=== PATIENT | female | born 2005 | race Caucasian/White ===

== ENCOUNTER 2025-03-11 15:30 | Outpatient (RCR) | payer OTHER, SELFPAY ==
[2025-02-25 15:15] VITALS: BP 101/63; PULSE 62; RESP 18; TEMP 36.9
--- NOTE | 2025-02-25 18:01 | PCM.WC.HP ---
History of Present Illness Date of Service: 02/26/25 Chief Complaint: R chung wound History of Wound: Hanna Duque is a 19 y/o female who presents today for evaluation and management of a right chung wound she sustained secondary to a fall at work (she works in [employer]) about 5 weeks ago in which a piece of metal scraped her chung. She has up to date Tetanus. She was not evaluated in ER/urgent care when this occurred. She has been managing at home by applying antibiotic ointment, silver cream, and keeping covered. She reports initially after the injury the area became red and swollen; her tablet coater prescribed a course of Bactrim which she completed with improvement in the redness and swelling. She is able to walk without issue. 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 She notes when she is up on her feet and more active she gets a lot more drainage from the wound. She has had prior scrapes etc before with slightly slow healing by her estimation. She is not diabetic. She does not have any known autoimmune disorder nor is she on any immune-modulating therapies. She does not smoke. She is otherwise in very good health. [facility] Home Medications ?Medication ?Instructions ?Recorded ?Last Taken ?Type ferrous sulfate 325 mg (65 mg 325 mg PO DAILY 02/25/25 Unknown History iron) tablet (Feosol) sulfamethoxazole 800 1 tab PO BID 02/25/25 02/25/25 History mg-trimethoprim 160 mg tablet Allergy/AdvReac Type Severity Reaction Status Date / Time No Known Allergies Allergy Verified 02/25/25 15:28 Vital Signs Vital Signs Vital Signs: 02/25/25 15:15 Temperature 98.5 F Temperature Source Temporal Pulse Rate 62 Respiratory Rate 18 Blood Pressure 101/63 Blood Pressure Mean 75 Blood Pressure Source Monitor Blood Pressure Position Sitting Blood Pressure Location Left Arm Physical Exam Const alert, oriented x3 and no apparent distress General Appearance: cooperative and comfortable HEENT normocephalic, head/scalp atraumatic, hearing grossly normal bilaterally, external ears normal and external nose normal Eyes EOMs intact bilaterally General Eye: normal appearance of both eyes Neck General: normal visual inspection and trachea midline Resp normal respiratory effort, normal air movement, no retractions and no use of accessory muscles Effort and Inspection: able to speak in complete sentences; Negative for labored, grunting, stridor or audible wheezes Extremity no clubbing, cyanosis or edema Skin Wounds: wounds noted Wound Narrative: R anterior chung wound which is ~0.7cm in depth to the muscle, 1.7 x 1.0 cm. Wound base initially covered with nonviable tissue, slough, dried drainage; once debrided, well-bleeding and ~70% granular base. There is mild erythema about the wound edges without associated focal edema/fluctuance/induration. To probing, no tracking or undermining. Minimal serous drainage. No foul odor. Neuro oriented x3, moves all extremities and no focal motor deficits Speech: speech normal Psych mental status grossly normal Appearance: grossly normal Attitude: calm and engaged Activity / Motor Behavior: appropriate eye contact Speech: normal speech Mood & Affect: euthymic mood Judgement: judgement good Debridement Note Debridement Note Wound debrided: R anterior chung Laterality: Right Type of Debridement: Excisional debridement Anesthesia Used: 5% Lidocaine Gel Depth: Down to and including healthy tissue and to muscle Percentage of wound debrided: 100 Instrument Used: 5mm curette Tissue Removed: slough, nonviable tissue Amount of bleeding with debridement: Mild Bleeding Controlled with: Pressure Patient tolerated procedure: Patient tolerated procedure well Post-Debridement Measurements and Additional Note: Post-Debridement Measurements/Treatment - Nurse 1 - General Ulcer Assessment Start: 02/25/25 15:13 Freq: Status: Active Protocol: CATIA Activity Type Activity Date Activity User E-sign Co-sign Detail Recorded Client Recorded Date Recorded By Document 02/25/25 15:15 PA [id number] 02/25/25 15:24 PA 02/25/25 15:15 - Today's Visit Information Type of service Initial Visit Accompanied by mom Patient Identification Verified (Name & Yes ) Vital Signs Temperature (97.8 F-99.1 F) 98.5 F Temperature Source Temporal Pulse Rate (60-100) 62 Respiratory Rate (12-18) 18 Blood Pressure (90/60-120/80) 101/63 Blood Pressure Mean 75 Source Monitor Position Sitting Blood Pressure Location Left Arm History Since Last Visit- (Skip if this is Patient's initial visit) Has dressing in place as prescribed Yes Has compression in place as prescribed Yes Has offloadiing in place as prescribed Yes Experienced any changes in pain level or Yes management Left Footwear Regular Shoe Right Footwear Regular Shoe Pain Scale: 0-10 Numeric Is Patient Pain Free? Yes - Nurse 1 - General Ulcer Measurement Start: 02/25/25 15:13 Freq: Status: Active Protocol: Activity Type Activity Date Activity User E-sign Co-sign Detail Recorded Client Recorded Date Recorded By Document 02/25/25 15:15 PA [id number] 02/25/25 15:24 PA 02/25/25 15:15 Wound Center Nurse 1 #1 Right Chung -Current Size (cm) - Length 1.7 -Current Size (cm) - Width 1.5 -Current Size (cm) - Depth 0.2 -Total Square Cm 2.55 -Date of Last Picture (Recall this 02/25/25 field) -Photo Taken Yes -Tunneling No -Undermining/Tunneling No -Circular Undermining No -Exudate Amt None Present -Wound Margin Thickened & Rolled Under -Granulation Amt Small (1-33%) -Granulation Quality Pale,[place] -Necrosis Amt None Present (0 %) -Texture (Lashaun-wound Skin Appearance) Assessed, Induration -Moisture ([place]asha[place]-wound Skin Appearance) Assessed -Color ([place]ashaun-wound Skin Appearance) Assessed -Temperature ([place]asha[place]-wound Skin No Abnormality Appearance) (Pt Warm) -Tenderness on Palpation ([place]ashaun-wound No Skin Appearance) -Ulcer Cleansing Soap and Water -Foul Odor after Cleansing No -Anesthetic Used 5% Lidocaine Gel Right Calf (cm) 35 Right Ankle (cm) 22 WC - Nurse 2 - General Ulcer CM Notes Start: 02/25/25 15:13 Freq: Status: Active Protocol: Activity Type Activity Date Activity User E-sign Co-sign Detail Recorded Client Recorded Date Recorded By Document 02/25/25 15:29 [id number] 02/25/25 15:38 02/25/25 15:29 Wound Center Nurse 2 #1 Right Chung -Time 15:29 -Correct Patient Yes -Correct Side, Site, Position Yes -Correct Procedure Yes -Procedure Performed Yes -Type of Procedure Debridement -Clinical Debridement Muscle / Fascia -Tissue Removed Muscle -Post Debridement (cm) - Length 1.7 -Post Debridement (cm) - Width 1.0 -Post Debridement (cm) - Depth 0.7 -Total Square (Post) (cm) 1.70 -Area of Debridement (cm) - Length 1.7 -Area of Debridement (cm) - Width 1.0 -Total Square (Area) (cm) 1.70 -Tunneling No -Undermining/Tunneling No -Circular Undermining No -Wound/Ulcer Outcome Not Healed -Ulcer Cleansing Not Cleansed -Foul Odor after Cleansing No -Bioengineered Tissue No -Bleeding Controlled with Pressure -Treatment Response Procedure Tolerated Well -Offloading No -Debridement - Muscle / Fascia, 1st Yes 20sq cm Pain Scale: 0-10 Numeric Is Patient Pain Free? Yes - Nurse 3 - General Ulcer D/C NN Start: 02/25/25 15:13 Freq: Status: Active Protocol: Activity Type Activity Date Activity User E-sign Co-sign Detail Recorded Client Recorded Date Recorded By Document 02/25/25 15:48 PA [id number] 02/25/25 15:58 PA 02/25/25 15:48 Wound Care Center Nurse 3 #1 Right Chung -Ulcer Cleansing Soap and Water -Primary Dressing Applied Aquacel AG 4x4, Silicone Border Foam 4x4 -Primary Dressing Covered/Secured with Dry Gauze -Aquacel AG 4x4 1 -Silicone Border Foam 4x4 1 Pain Scale: 0-10 Numeric Is Patient Pain Free? Yes WC - Visit Discharge Discharge Condition Stable Ambulatory Status Ambulatory Transportation Private Auto Medication Reconcilliation completed & No provided to patient/care provider Clinical Summary of Care Provided Yes Charges/Coding Visit Charges Office Visits / Consults: 22957 OV L3 New 30min Procedures Integumentary 111xxx-113xx: 91950 Lorrie musc/fascia 20 sq cm/< Assessment/Plan Assessment/Plan (1) Open wound, lower leg: CODE(S): S81.809A - Unspecified open wound, unspecified lower leg, initial encounter QUALIFIERS: Encounter type: initial encounter Laterality: right Qualified Code(s): S81.801A - Unspecified open wound, right lower leg, initial encounter PLAN: Traumatic open wound to the right anterior chung to the depth of muscle PLAN: Plan I performed debridement of the wound today to remove the significant slough and nonviable tissue and she tolerated this very well. After debridement, healthy appearing wound base which was well-bleeding. There is deficit of tissue at the base of the wound, the opening is quite wide, it has been open 5 weeks with prior infection; at this time, I do not feel it is appropriate for primary closure. Obtained wound culture, will prescribed antibiotics as indicated by C&S. For wound care: (1) Wash with antibacterial soap and water, pat gently to dry (2) Pack lightly with Aquacel Silver (3) Cover with foam border dressing or gauze following by trent/luzing gauze to hold in place (4) Change at least once daily but more often as needed to keep clean and dry OK for showers (change dressings after) but no submerging such as to take a bath, swim, etc until healed. Plan for return to the wound clinic in 1-2 weeks to reassess.
--- NOTE | 2025-02-26 09:54 | WC ---
PHOTO 02/25/25 RIGHT IRBY
[2025-03-11 15:25] VITALS: BP 128/68; PULSE 79; RESP 16
--- NOTE | 2025-03-11 15:57 | PN.PCM_ITS ---
History of Present Illness Date of Service: 03/11/25 Chief Complaint: R chung wound History of Wound: Hanna Duque is a 19 y/o female who presents today for evaluation and management of a right chung wound she sustained secondary to a fall at work (she works in [place]) about 5 weeks ago in which a piece of metal scraped her chung. She has up to date Tetanus. She was not evaluated in ER/urgent care when this occurred. She has been managing at home by applying antibiotic ointment, silver cream, and keeping covered. She reports initially after the injury the area became red and swollen; her paper gluing operator prescribed a course of Bactrim which she completed with improvement in the redness and swel ling. She is able to walk without issue. 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 She notes when she is up on her feet and more active she gets a lot more drainage from the wound. She has had prior scrapes etc before with slightly slow healing by her estimation. She is not diabetic. She does not have any known autoimmune disorder nor is she on any immune-modulating therapies. She does not smoke. She is otherwise in very good health. Subjective Subjective Hanna is doing well this week. She has been performing wound care as instructed without difficulty; she did receive the ordered supplies. She has noticed much less drainage from the wound. She has not developed any increased pain, swelling, redness, or foul odor. She feels it is looking much better. She has been back up to her usual activities without issue. Objective Data Objective Data Vital Signs: Vital Signs Temp Pulse Resp BP O2 Del Method 98.5 F 79 16 128/68 H Room Air 02/25/25 15:15 03/11/25 15:25 03/11/25 15:25 03/11/25 15:25 03/11/25 15:25 Oxygen Delivery Method Room Air Lab / Micro Data Micro: Microbiology 02/25/25 15:36 Wound - Leg, Right Gram Stain - Final 02/25/25 15:36 Wound - Leg, Right Wound Culture - Final No growth aerobically. 02/25/25 15:36 Wound - Leg, Right Anaerobic Culture - Final No growth in 5 days. Charges/Coding Procedures Integumentary 111xxx-113xx: 98956 Lorrie musc/fascia 20 sq cm/< Physical Exam Const alert, oriented x3 and no apparent distress General Appearance: cooperative and comfortable HEENT normocephalic, head/scalp atraumatic, hearing grossly normal bilaterally, external ears normal and external nose normal Eyes EOMs intact bilaterally General Eye: normal appearance of both eyes Neck General: normal visual inspection and trachea midline Resp normal respiratory effort, normal air movement, no retractions and no use of accessory muscles Effort and Inspection: able to speak in complete sentences; Negative for labored, grunting, stridor or audible wheezes Extremity no clubbing, cyanosis or edema Skin Wounds: wounds noted Wound Narrative: R anterior chung wound which is decreased in size, now about ~0.4cm in depth to the muscle, 0.7 x 0.3 cm. Wound base initially covered with slough, dried dr gurrola; once debrided, well-bleeding and 100% granular base. There is no associated erythema/focal edema/fluctuance/induration. To probing, no tracking or undermining. Minimal serous drainage. No foul odor. Neuro oriented x3, moves all extremities and no focal motor deficits Speech: speech normal Psych mental status grossly normal Appearance: grossly normal Attitude: calm and engaged Activity / Motor Behavior: appropriate eye contact Speech: normal speech Mood & Affect: euthymic mood Judgement: judgement good Debridement Note Debridement Note Wound debrided: R anterior chung Laterality: Right Type of Debridement: Excisional debridement Anesthesia Used: 5% Lidocaine Gel Depth: Down to and including healthy tissue and to muscle Percentage of wound debrided: 100 Instrument Used: 3mm curette Tissue Removed: slough, nonviable tissue Amount of bleeding with debridement: Mild Bleeding Controlled with: Pressure Patient tolerated procedure: Patient tolerated procedure well Post-Debridement Measurements and Additional Note: Post-Debridement Measurements/Treatment - Nurse 1 - General Ulcer Assessment Start: 02/25/25 15:13 Freq: Status: Active Protocol: CATIA Activity Type Activity Date Activity User E-sign Co-sign Detail Recorded Client Recorded Date Recorded By Document 02/25/25 15:15 MS [id number] 02/25/25 15:24 MS Document 03/11/25 15:25 [facility] [id number] 03/11/25 15:30 [facility] 02/25/25 03/11/25 15:15 15:25 - Today's Visit Information Type of service Initial Visit Follow-up Visit (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/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 ) Arrival Mode Ambulatory Transfer Assistance None Accompanied by mom Patient Identification Verified (Name & Yes Yes ) Patient Requires Transmission-Based No Precautions Vital Signs Temperature (97.8 F-99.1 F) 98.5 F Temperature Source Temporal Pulse Rate (60-100) 62 79 Pulse Location Monitor Respiratory Rate (12-18) 18 16 Respiratory rate source Observation Oxygen Delivery Method Room Air Blood Pressure (90/60-120/80) 101/63 128/68 H Blood Pressure Mean (mm Hg) 75 88 Source Monitor Monitor Position Sitting Sitting Blood Pressure Location Left Arm Right Arm History Since Last Visit- (Skip if this is Patient's initial visit) Have you changed medications since your No last visit? Any new allergies or adverse reactions No Had a fall/change in ADL's that may No increase risk of falls Signs or symptoms of abuse and/or No neglect since last visit Have you been in the hospital since your No last visit? Has dressing in place as prescribed Yes Yes Has compression in place as prescribed Yes N/A Has offloadiing in place as prescribed Yes N/A Experienced any changes in pain level or Yes No management Left Footwear Regular Shoe Regular Shoe Right Footwear Regular Shoe Regular Shoe Pain Scale: 0-10 Numeric Is Patient Pain Free? Yes Yes WC - Nurse 1 - General Ulcer Measurement Start: 02/25/25 15:13 Freq: Status: Active Protocol: Activity Type Activity Date Activity User E-sign Co-sign Detail Recorded Client Recorded Date Recorded By Document 02/25/25 15:15 MS [id number] 02/25/25 15:24 MT Document 03/11/25 15:25 [facility] [id number] 03/11/25 15:30 [facility] 02/25/25 03/11/25 15:15 15:25 Wound Center Nurse 1 #1 Right Chung -Combined with other wound No -Current Size (cm) - Length 1.7 1.1 -Current Size (cm) - Width 1.5 0.4 -Current Size (cm) - Depth 0.2 0.3 -Total Square Cm 2.55 0.44 -Date of Last Picture (Recall this 02/25/25 field) -Photo Taken Yes -Tunneling No No -Undermining/Tunneling No No -Circular Undermining No No -Exudate Amt None Present Medium -Exudate Type Serosanguineous -Wound Margin Thickened & Distinct, Rolled Under Outline Attached -Granulation Amt Small (1-33%) None Present (0 %) -Granulation Quality Pale,[place] -Slough/Fibrin Yes -Necrosis Amt None Present (0 Large (67-100%) %) -Necrotic Tissue Type Adherent Slough -Texture (Lashaun-wound Skin Appearance) Assessed, Assessed Induration -Moisture ([place]ashaun-wound Skin Appearance) Assessed Assessed -Color ([place]ashaun-wound Skin Appearance) Assessed Assessed -Temperature (Lashaun-wound Skin No Abnormality No Abnormality Appearance) (Pt Warm) (Pt Warm) -Tenderness on Palpation ([place]ashaun-wound No No Skin Appearance) -Ulcer Cleansing Soap and Water Rinsed/ Irrigated with Saline -Foul Odor after Cleansing No No -Anesthetic Used 5% Lidocaine 5% Lidocaine Gel Gel Right Calf (cm) 35 Right Ankle (cm) 22 WC - Nurse 2 - General Ulcer CM Notes Start: 02/25/25 15:13 Freq: Status: Active Protocol: Activity Type Activity Date Activity User E-sign Co-sign Detail Recorded Client Recorded Date Recorded By Document 02/25/25 15:29 [id number] 02/25/25 15:38 GM Document 03/11/25 15:43 [id number] 03/11/25 15:45 GM 02/25/25 03/11/25 15:29 15:43 Wound Center Nurse 2 #1 Right Chung -Time 15:29 15:43 -Correct Patient Yes Yes -Correct Side, Site, Position Yes Yes -Correct Procedure Yes Yes -Procedure Performed Yes Yes -Type of Procedure Debridement Debridement -Clinical Debridement Muscle / Fascia Subcutaneous -Tissue Removed Muscle Subcutaneous -Post Debridement (cm) - Length 1.7 0.7 -Post Debridement (cm) - Width 1.0 0.3 -Post Debridement (cm) - Depth 0.7 0.4 -Total Square (Post) (cm) 1.70 0.21 -Area of Debridement (cm) - Length 1.7 0.7 -Area of Debridement (cm) - Width 1.0 0.3 -Total Square (Area) (cm) 1.70 0.21 -Tunneling No No -Undermining/Tunneling No No -Circular Undermining No No -Wound/Ulcer Outcome Not Healed Not Healed -Ulcer Cleansing Not Cleansed Rinsed/ Irrigated with Saline -Foul Odor after Cleansing No No -Bioengineered Tissue No No -Bleeding Controlled with Pressure Pressure -Treatment Response Procedure Procedure Tolerated Well Tolerated Well -Offloading No No -Debridement - Subq, 1st 20sq cm Yes -Debridement - Muscle / Fascia, 1st Yes 20sq cm Pain Scale: 0-10 Numeric Is Patient Pain Free? Yes Yes - Nurse 3 - General Ulcer D/C NN Start: 02/25/25 15:13 Freq: Status: Active Protocol: Activity Type Activity Date Activity User E-sign Co-sign Detail Recorded Client Recorded Date Recorded By Document 02/25/25 15:48 MS [id number] 02/25/25 15:58 MS Document 03/11/25 15:52 [facility] [id number] 03/11/25 15:52 [facility] 02/25/25 03/11/25 15:48 15:52 Wound Care Center Nurse 3 #1 Right Chung -Ulcer Cleansing Soap and Water Rinsed/ Irrigated with Saline -Foul Odor after Cleansing No -Primary Dressing Applied Aquacel AG 4x4, Aquacel AG 2x2, Silicone Border Silicone Border Foam 4x4 Foam 4x4 -Primary Dressing Covered/Secured with Dry Gauze -Aquacel AG 2x2 1 -Aquacel AG 4x4 1 -Silicone Border Foam 4x4 1 1 Treatment Response Procedure Tolerated Well Pain Scale: 0-10 Numeric Is Patient Pain Free? Yes Yes - Visit Discharge Discharge Condition Stable Stable Ambulatory Status Ambulatory Ambulatory Transportation Private Auto Private Auto Medication Reconcilliation completed & No provided to patient/care provider Clinical Summary of Care Provided Yes Assessment/Plan Assessment/Plan (1) Open wound, lower leg: CODE(S): S81.809A - Unspecified open wound, unspecified lower leg, initial encounter QUALIFIERS: Encounter type: initial encounter Laterality: right Qualified Code(s): S81.801A - Unspecified open wound, right lower leg, initial encounter PLAN: Traumatic open wound to the right anterior chung to the depth of muscle PLAN: Plan I performed debridement of the wound today to remove the significant slough and nonviable tissue and she tolerated this very well. After debridement, healthy appearing wound base which was well-bleeding. It has significantly decreased in size, making good progress towards healing via secondary intention. Will continue with current wound care. Culture obtained at last visit was negative. For wound care: (1) Wash with antibacterial soap and water, pat gently to dry (2) Pack lightly with Aquacel Silver (3) Cover with foam border dressing or gauze following by trent/destiny gauze to hold in place (4) Change at least once daily but more often as needed to keep clean and dry OK for showers (change dressings after) but no submerging such as to take a bath, swim, etc until healed. Plan for return to the wound clinic in 2 weeks to reassess.
== END 2025-03-13 23:59 | disposition home or self-care (01) ==
LOC: WC 15:30
PROVIDERS: PCP Family Medicine; Visit Provider Physician Assistant
DX: S81.801A Unspecified open wound, right lower leg, initial encounter (principal); W19.XXXA Unspecified fall, initial encounter
CPT/HCPCS: 11042; 11043; 87070; 87075; 87205; 99203; G0463